=== PATIENT | female | born 2000 | race African-American/Black ===

== ENCOUNTER 2022-01-12 14:40 | Emergency (ER) | payer OTHER ==
[~2022-01-12] VITALS: Ht 157.5 cm; Wt 77.2 kg
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
[2022-01-12 16:25] VITALS: BP 116/71
== END 2022-01-12 16:25 | disposition home or self-care (01) ==
LOC: ER 14:40
DX: S63.502A Unspecified sprain of left wrist, initial encounter (principal); S60.512A Abrasion of left hand, initial encounter; V89.2XXA Person injured in unspecified motor-vehicle accident, traffic, initial encounter; Y93.I9 Activity, other involving external motion; Y92.89 Other specified places as the place of occurrence of the external cause; Y99.8 Other external cause status
CPT/HCPCS: 29125; 73110; 99283